=== PATIENT | male | born 1995 | race Caucasian/White ===

== ENCOUNTER 2024-02-13 19:02 | Emergency (ER) | payer MEDICAID ==
--- NOTE | 2024-02-13 19:23 | ED Physician Documentation ---
PD HPI NVD - Stated complaint Stated Complaint: DETOX - Chief complaint Chief Complaint: General - History obtained from History obtained from: Patient - History of Present Illness Timing - onset: How many days ago (5-6) Timing - duration: Days (he states alchol use disorder and was drinking 1 box of wine daily. Wanted to stop so did so "cold turkey" with shaking and N/V for 2-3 days starting couple of days after. Talked with AA sponsor type person who russ he could come to ER for meds/assessment.) Timing - details: Gradual onset (started 1-2 days after stopping alochol.), Still present (improving but still present) Associated symptoms: Loss of appetite, Other (still some shaky and feeling HR still eleated. Having trouble sleeping.). No: Abdominal pain PD PAST MEDICAL HISTORY - Past Medical History Past Medical History: Yes Cardiovascular: Hypertension Psych: ADD/ADHD - Past Surgical History Past Surgical History: No - Present Medications Home Medications: Ambulatory Orders Medication Instructions Recorded Confirmed LORazepam [Ativan] 1 mg PO BID PRN #12 tablet 02/13/24 buPROPion HCL [Bupropion Xl] 150 mg PO DAILY #30 tab 02/13/24 - Allergies Allergies/Adverse Reactions: Allergies Allergy/AdvReac Type Severity Reaction Status Date / Time Sulfa (Sulfonamide Allergy Unknown Verified 02/13/24 19:15 Antibiotics) - Social History Does the pt smoke?: No Smoking Status: Never smoker Does the pt drink ETOH?: Yes Does the pt have substance abuse?: No - Immunizations Immunizations are current?: Yes - POLST Patient has POLST: No PD ED PE NORMAL - Vitals Vital signs reviewed: Yes - General General: Alert and oriented X 3, Well developed/nourished - Cardiac Cardiac: RRR, No murmur - Respiratory Respiratory: No respiratory distress, Clear bilaterally - Abdomen Abdomen: Soft, Non tender Results - Vitals Vitals: Vital Signs - 24 hr 02/13/24 02/13/24 19:15 20:25 Temperature 36.5 C Heart Rate 122 H 97 Respiratory 16 18 Rate Blood Pressure 155/100 H 131/90 H O2 Saturation 99 100 Oxygen O2 Source Room air PD Medical Decision Making - ED course Complexity details: considered differential (the patient is through the worst of the withda=anne now at day 5-6, and unlikely to need acute detox. More is in need of supportive rehab and streatment. He is otherwise healthy so I did not feel labs indicated. Has elevaed BP and HR but not shakiness. He is in favor of PO meds and Rx for home. ), d/w patient Departure - Departure Disposition: 01 Home, Self Care Clinical Impression: Alcohol use disorder, Alcohol withdrawal Condition: Stable Record reviewed to determine appropriate education?: Yes Instructions: ED Withdrawal Alcohol Follow-Up: Torres Pandey MD [Primary Care Provider] - Prescriptions: LORazepam [Ativan] 1 mg PO BID PRN #12 tablet PRN Reason: Alcohol Withdrawal buPROPion HCL [Bupropion Xl] 150 mg PO DAILY #30 tab Comments: Good for you for stopping alcohol use. The worst part of the withdrawal as you have experienced is the first several days, typically 3 to 5 days or so, but there can still be continued symptoms in particular trouble sleeping and some anxiety and such for several days more even a week or so. This can be treated with the most simply some benzodiazepine. We provided a dose of 2 medicines for tonight to help with some of the likely persisting withdrawal symptoms. I then wrote a prescription for lorazepam/Ativan that you can use twice daily if needed for symptoms but particularly to use at night for sleep. Taper use and discontinue if not needed. It is good for you to have a support system such as AA or counselors or such. Next steps of course will be to remain off alcohol. Support groups are good for that and of course removing alcohol from your house etc. Additionally some antidepressant medicines are used to help decrease craving. Most classic his smoking cessation but bupropion is used for alcohol cessation if over eating etc. if you were wanting to try that, I did write a prescription for it. It takes a week or 2 do notice much of a difference so do not expect a noticeable improvement right off. Use of this would be geared towards the idea of at least 6 months to a year duration. [place] than that is not necessarily useful because of the several week ramp-up time etc. Follow-up with your primary care as well for any ongoing treatments. Your blood pressure was up a bit at 155/100 right now. Your heart rate was also approximately 120. Both of these are still likely signs of some withdrawal symptoms going on. Your blood pressure is not concerning [place] or dangerously high. Continue with usual blood pressure medicine. Given that you have been eating and drinking and seem hydrated and are otherwise pretty young and healthy, blood tests typically have very low yield in this setting. I sent a prescription to [facility]. Forms: PCP List Discharge Date/Time: 02/13/24 20:25
[2024-02-13] MEDS: LORazepam 0.5 MG TABLET PO STA (20:20)
[2024-02-13] MEDS: PHENobarbitaL 32.4 MG TABLET PO STA (20:20)
[2024-02-13 20:33] VITALS: BP 131/90; O2SAT 100
== END 2024-02-13 20:25 | disposition home or self-care (01) ==
LOC: ED 19:02
DX: F10.239 Alcohol dependence with withdrawal, unspecified (principal); I10 Essential (primary) hypertension
CPT/HCPCS: 99283; A9270